=== PATIENT | male | born 1985 | race Caucasian/White ===

== ENCOUNTER 2025-09-21 18:37 | Emergency (ER) | payer OTHER, SELFPAY ==
[2025-09-21] VITALS (17 sets, daily range): BP systolic 124–147; BP diastolic 66–88; PULSE 69–88; RESP 10–18; TEMP 36.8; O2SAT 94–100; BMI 31.2
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
[2025-09-21 19:05] LABS: Add Manual Diff / Slide Review NO; Hematocrit 43.1 % (41-53); Hemoglobin 15.0 g/dL (13.5-17.5); Lymphocytes Absolute Auto 3000 /uL (1100-4500); Mean Corpuscular HGB Conc 34.8 % (30-36); Mean Corpuscular Hemoglobin 30.7 PG (26-34); Mean Corpuscular Volume 88.3 fL (80-100); Platelet Count 200 X10^3/uL (150-400)
[2025-09-21 19:17] LABS: Alanine Aminotransferase 23 IU/L (<50); Albumin 4.8 g/dL (3.5-5.0); Albumin Globulin Ratio 1.5 (1.0-2.8); Alkaline Phosphatase 51 U/L (38-126); Blood Urea Nitrogen 18 mg/dL (9-20); Calcium 9.1 mg/dL (8.4-10.2); Carbon Dioxide 24 mmol/L (22-32); Chloride 105 mmol/L (98-107); Estimated Glomerular Filt Rate > 60 mL/min (>60); Globulin 3.2 g/dL (1.7-4.1); Glucose 103 mg/dL (70-99); HEMOLYSIS 17 (0-50); Lipase 72 U/L (23-300); Potassium 3.6 mmol/L (3.4-5.1); Sodium 139 mmol/L (137-145); Total Protein 8.0 g/dL (6.3-8.2)
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
[2025-09-21 19:26] LABS: Ethanol (ETOH) < 10 mg/dL (<10)
[2025-09-21] MEDS: ONDANSETRON 4 MG/2 ML INJ IV (19:30)
--- NOTE | 2025-09-21 20:34 | EKG_ITS ---
[address] [address] Test Date: 2025-09-21 Pat Name: Skip Tran Department: [facility] Room: Gender: Male [employer] Keyholder: JUSTIN YOUSIF : 1985 Requested By: Order Number: [id number] Reading MD: Mckinley Jim Measurements Intervals [place] Rate: 86 P: 57 CA: 158 QRS: 2 QRSD: 84 T: -10 QT: 386 QTc: 461 Interpretive Statements Normal sinus rhythm Electronically Signed On 09-22-2025 14:09:58 PST by Mckinley Jim
[2025-09-21 21:02] LABS: INR 1.0 (0.9-1.3); Prothrombin Time 10.9 SECONDS (9.4-12.5)
[2025-09-21 21:04] LABS: PTT Partial Thromboplastin Tim 31 SECONDS (25.1-36.5)
== END 2025-09-21 22:50 | disposition short-term general hospital (02) ==
PROVIDERS: Emergency Provider Emergency Medicine
DX: S22.42XA Multiple fractures of ribs, left side, initial encounter for closed fracture (principal); R07.89 Other chest pain; M79.652 Pain in left thigh; V03.10XA Pedestrian on foot injured in collision with car, pick-up truck or van in traffic accident, initial encounter; Y92.410 Unspecified street and highway as the place of occurrence of the external cause
CPT/HCPCS: 36415; 71275; 72125; 72170; 73552; 74177; 80053; 80320; 83690; 85025; 85610; 85730; 86850; 86900; 86901; 93005; 96374; 96375; 96376; 99284; J1171; J2405